=== PATIENT | male | born 1990 | race Two or more races ===

== ENCOUNTER 2018-10-13 13:35 | Emergency (ER) | payer BC, OTHER ==
[~2018-10-13] VITALS: Ht 177.8 cm; Wt 68.0 kg
[2018-10-13] MEDS ORDERED: IV NORMAL SALINE 1000ML BAG 1,000 ML IV ONE (14:00)
[2018-10-13] MEDS ORDERED: ACETAMINOPHEN 325 MG TABLET. PO ONE (14:15)
--- NOTE | 2018-10-13 14:32 | PHYS DOC ---
Adult General Chief Complaint Chief Complaint: SEIZURE HPI HPI Pt speaks Primary [place]- pt's friend Bryan is translating. 28-year-old male presents to ER via POV with friends and family. Pt had sore throat and fever earlier since yest. and wasn't feeling good so he laid down to take a nap. Pt's friend Bryan reports pt was sleeping and had approx. 1 min. of shaking in his hands/legs and seizure like activity. Pt's friend reports pt then woke up and had no further episodes. He reports pt had no incontinence of bowel/bladder. Pt reports pt has been NL on mental status with no episodes of confusion. Pt's friend Bryan denies pt fell out of bed or has had any recent falls /injury. He denies pt with recent travel, PMH, or daily meds. He denies pt smokes, drinks, or uses illicit drugs. Pt is denying any CP, palpitations, dizziness, N/V/D, or urinary sxs. Pt reports he has diffuse RAMIREZ- denies neck pain , eye pain, or light headedness. 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 Pt's friend reports approx. 1 1/2 years ago pt had similar episode that lasted brief moment and no other episodes. Review of Systems Review of Systems Constitutional: Denies fever or chills [] Eyes: Denies change in visual acuity, redness, or eye pain [] HENT: Denies nasal congestion or sore throat [] Respiratory: Denies cough or shortness of breath [] Cardiovascular: No additional information not addressed in HPI [] GI: Denies abdominal pain, nausea, vomiting, bloody stools or diarrhea [] : Denies dysuria or hematuria [] Musculoskeletal: Denies back pain or joint pain [] Integument: Denies rash or skin lesions [] Neurologic: Denies headache, focal weakness or sensory changes [] Endocrine: Denies polyuria or polydipsia [] All other systems were reviewed and found to be within normal limits, except as documented in this note. Current Medications Current Medications Current Medications Medications (Trade) Dose Ordered Sig/Sherlyn Start Time Stop Time Status Last Admin Dose Admin Acetaminophen (Tylenol) 650 mg 1X ONCE 10/13/18 14:15 10/13/18 14:16 DC 10/13/18 14:37 650 MG Sodium Chloride 1,000 ml @ 1,000 mls/hr 1X ONCE 10/13/18 14:00 10/13/18 14:59 DC 10/13/18 14:33 1,000 MLS/HR Allergies Allergies Allergies Coded Allergies Type Severity Reaction Last Updated Verified No Known Drug Allergies 10/13/18 No Physical Exam Physical Exam Constitutional: Well developed, well nourished, no acute distress, non-toxic appearance. [] HENT: Normocephalic, atraumatic, bilateral ears normal, oropharynx moist- no pharyngeal swelling/erythema, no oral exudates, nose normal. [] Eyes: 3mm PERRLA, EOMI- no eye pain with movement, no nystagmus, conjunctiva normal, no discharge. [] Neck: Normal range of motion, no tenderness- no nuchal rigidity, supple, no stridor- no gross adenopathy Cardiovascular: Heart rate regular rhythm, no murmur [] Lungs & Thorax: Bilateral breath sounds clear to auscultation. Resp. equal/ nonlabored Abdomen: Bowel sounds normal, soft, no tenderness Skin: Warm, dry, no erythema, no rash. [] Back: No tenderness, no CVA tenderness. [] Extremities: No tenderness, no cyanosis, no clubbing, ROM intact, no edema. [] Neurologic: Alert and oriented X 3, normal motor function, normal sensory function, no focal deficits noted. [] Psychologic: Affect normal, judgement normal, mood normal. [] Current Patient Data Vital Signs Vital Signs Date Time Temp Pulse Resp B/P (MAP) Pulse Ox O2 Delivery O2 Flow Rate FiO2 10/13/18 13:42 99.9 81 16 126/81 (96) 96 Room Air 99.9 Lab Values Laboratory Tests Test 10/13/18 14:04 10/13/18 14:09 10/13/18 14:26 10/13/18 15:27 Influenza Type A Antigen Negative (NEGATIVE) Influenza Type B Antigen Negative (NEGATIVE) Group A Streptococcus Rapid Negative (NEGATIVE) White Blood Count 10.3 x10^3/uL (4.0-11.0) Red Blood Count 4.42 x10^6/uL (4.30-5.70) Hemoglobin 13.8 g/dL (13.0-17.5) Hematocrit 41.6 % (39.0-53.0) Mean Corpuscular Volume 94 fL (79-100) Mean Corpuscular Hemoglobin 31 pg (25-35) Mean Corpuscular Hemoglobin Concent 33 g/dL (31-37) Red Cell Distribution Width 13.0 % (11.5-14.5) Platelet Count 191 x10^3/uL (140-400) Neutrophils (%) (Auto) 84 % (31-73) H Lymphocytes (%) (Auto) 11 % (24-48) L Monocytes (%) (Auto) 5 % (0-9) Eosinophils (%) (Auto) 0 % (0-3) Basophils (%) (Auto) 0 % (0-3) Neutrophils # (Auto) 8.6 x10^3uL (1.8-7.7) H Lymphocytes # (Auto) 1.1 x10^3/uL (1.0-4.8) Monocytes # (Auto) 0.5 x10^3/uL (0.0-1.1) Eosinophils # (Auto) 0.0 x10^3/uL (0.0-0.7) Basophils # (Auto) 0.0 x10^3/uL (0.0-0.2) Sodium Level 139 mmol/L (136-145) Potassium Level 3.6 mmol/L (3.5-5.1) Chloride Level 104 mmol/L (98-107) Carbon Dioxide Level 27 mmol/L (21-32) Anion Gap 8 (6-14) Blood Urea Nitrogen 12 mg/dL (8-26) Creatinine 1.0 mg/dL (0.7-1.3) Estimated GFR (Cockcroft-Gault) 89.6 BUN/Creatinine Ratio 12 (6-20) Glucose Level 105 mg/dL (70-99) H Calcium Level 8.7 mg/dL (8.5-10.1) Magnesium Level 1.9 mg/dL (1.8-2.4) Total Bilirubin 0.2 mg/dL (0.2-1.0) Aspartate Amino Transferase (AST) 23 U/L (15-37) Alanine Aminotransferase (ALT) 32 U/L (16-63) Alkaline Phosphatase 87 U/L (46-116) Creatine Kinase 145 U/L (39-308) Creatine Kinase MB (Mass) < 0.5 ng/mL (0.0-3.6) Creatine Kinase MB Relative Index 0.3 % (0-4) Total Protein 7.3 g/dL (6.4-8.2) Albumin 3.2 g/dL (3.4-5.0) L Albumin/Globulin Ratio 0.8 (1.0-1.7) L Urine Collection Type Unknown Urine Color Yellow Urine Clarity Clear Urine pH 6.0 Urine Specific [place] 1.010 Urine Protein Negative mg/dL (NEG-TRACE) Urine Glucose (UA) Negative mg/dL (NEG) Urine Ketones (Stick) Negative mg/dL (NEG) Urine Blood Small (NEG) Urine Nitrite Negative (NEG) Urine Bilirubin Negative (NEG) Urine Urobilinogen Dipstick 0.2 mg/dL (0.2 mg/dL) Urine Leukocyte Esterase Negative (NEG) Urine RBC 3-5 /HPF (0-2) Urine WBC 1-4 /HPF (0-4) Urine Squamous Epithelial Cells Few /LPF Urine Bacteria 0 /HPF (0-FEW) Urine Hyaline Casts Few /HPF Urine Mucus Slight /LPF Urine Opiates Screen Neg (NEG) Urine Methadone Screen Neg (NEG) Urine Barbiturates Neg (NEG) Urine Phencyclidine Screen Neg (NEG) Urine Amphetamine/Methamphetamine Neg (NEG) Urine Benzodiazepines Screen Neg (NEG) Urine Cocaine Screen Neg (NEG) Urine Cannabinoids Screen Neg (NEG) Ethyl Alcohol Level < 10 mg/dL (0-10) Urine Ethyl Alcohol Neg (NEG) Laboratory Tests 10/13/18 14:26 Laboratory Tests 10/13/18 14:26 EKG EKG [] Radiology/Procedures Radiology/Procedures [] Course & Med Decision Making Course & Med Decision Making Pertinent Labs reviewed. (See chart for details) 1420: Friend reports pt had taken 2 Decolgen tabs prior to his nap. 1600: Pt was evaluated in the ER for seizure like activity- which his friend reported while pt was sleeping he had approx. 1 min. episode of arms/legs shaking and it appeared he was having seizure activity. Pt's friend reports episode occurred around 12 p.m. and since pt woke he has been approp. mental status without confusion per pt's friend. Pt had reports of fever and flu like illness- his flu test was neg. Pt was given IV flds and dose of tylenol while in the ER as he had c/o RAMIREZ. At this time pt denies pain reporting sxs improved with RAMIREZ subsiding. He has had no seizure like activity or change in MS while in ER. Test results were discussed- labs with NL WBCs at 10.3 no bands- neutrophils were elevated at 84 which discussed probable viral illness- UA without infection. Discussed plans for home discharge as pt has been in ER for over 2 hrs without any episodes of tremors or seizure like activity- pt's friend had reported 1 other episode where pt had brief episode of shakes/ tremors which they felt were seizure like. Pt has had no doctor follow-up and is on no seizure or daily medications. No imaging done as pt had episode during sleep and has been A&Ox3 with no focal neuro deficits. Pt reported he drinks minimal water daily so advised on increasing fld intake. Educated on tylenol and ibuprofen use for fever/pain and to avoid Decolgen tabs. Will provide clinic /physician referral info with discharge paperwork and pt to f/u for re-eval. Education provided on s&s to return to ER for and discharge instructions were discussed. Pt was visualized following discussion with steady unassisted gait to bathroom. Pt's CK total was NL at 145. Dragon Disclaimer Dragon Disclaimer This electronic medical record was generated, in whole or in part, using a voice recognition dictation system. Departure Departure Impression: Primary Impression: Viral syndrome Additional Impression: Seizure-like activity Disposition: 01 HOME, SELF-CARE Condition: STABLE Referrals: NO PCP (PCP) Patient Instructions: Seizure, Adult, [id number], Viral Syndrome Additional Instructions: You probably have a viral illness causing your fever, fatigue, and sore throat. Your seizure-like activity could have been related to this illness as some people will have seizure like activity with fevers. You are being provided with information on seizures although while in the Emergency Department you have had no seizure like activity. You should follow-up with your primary doctor or a neurologist for re- evaluation and further care in 3-5 days- sooner with any concerns. Tylenol and/or ibuprofen as needed for pain and fever as directed on container. Drink lots of water. Problem Qualifiers KAYCEE BUCK APRN Oct 13, 2018 14:32
[2018-10-13 14:52] LABS: BASO % 0 % (0-3); EOS % 0 % (0-3); HEMATOCRIT 41.6 % (39.0-53.0); HEMOGLOBIN 13.8 g/dL (13.0-17.5); LYMPH # 1.1 x10^3/uL (1.0-4.8); LYMPH % 11 % (24-48); MEAN CORPUSCULAR HEMOGLOBIN 31 pg (25-35); MEAN CORPUSCULAR HGB CONC 33 g/dL (31-37); MEAN CORPUSCULAR VOLUME 94 fL (79-100); MONO # 0.5 x10^3/uL (0.0-1.1); MONO % 5 % (0-9); NEUT # 8.6 x10^3uL (1.8-7.7); NEUT % 84 % (31-73); PLATELET COUNT 191 x10^3/uL (140-400); RED BLOOD COUNT 4.42 x10^6/uL (4.30-5.70); WHITE BLOOD COUNT 10.3 x10^3/uL (4.0-11.0)
[2018-10-13 14:54] LABS: INFLUENZA A PATIENT NEGATIVE (NEGATIVE); INFLUENZA B PATIENT NEGATIVE (NEGATIVE)
[2018-10-13 15:05] LABS: CALCIUM 8.7 mg/dL (8.5-10.1); GFR 89.6; POTASSIUM 3.6 mmol/L (3.5-5.1)
[2018-10-13 15:11] LABS: ALBUMIN 3.2 g/dL (3.4-5.0); ALBUMIN/GLOBULIN RATIO 0.8 (1.0-1.7); MAGNESIUM 1.9 mg/dL (1.8-2.4); TOTAL BILIRUBIN 0.2 mg/dL (0.2-1.0); TOTAL PROTEIN 7.3 g/dL (6.4-8.2)
[2018-10-13 15:33] LABS: BILIRUBIN,URINE NEGATIVE (NEG); CLARITY,URINE CLEAR; COLOR,URINE YELLOW; NITRITE,URINE NEGATIVE (NEG); PROTEIN,URINE NEGATIVE (NEG-TRACE); UROBILINOGEN,URINE 0.2 mg/dL (0.2 mg/dL)
[2018-10-13 15:40] LABS: BARBITURATES NEG (NEG); BENZODIAZEPINES NEG (NEG); CANNABINOIDS NEG (NEG); COCAINE NEG (NEG); METHADONE NEG (NEG); OPIATES NEG (NEG); PHENCYCLIDINE NEG (NEG)
[2018-10-13 15:41] LABS: AMPHETAMINE/METHAMPHETAMINE NEG (NEG)
[2018-10-13 15:48] LABS: BACTERIA,URINE 0 /HPF (0-FEW); HYALINE CASTS, URINE FEW /HPF; SQUAMOUS EPITHELIAL CELL,UR FEW /LPF
[2018-10-13 15:52] VITALS: BP 119/64
[2018-10-13 16:51] LABS: CREATINE KINASE 145 U/L (39-308)
== END 2018-10-13 16:30 | disposition home or self-care (01) ==
LOC: ER 13:35
DX: B34.9 Viral infection, unspecified (principal); R50.9 Fever, unspecified; R51 Headache; J02.9 Acute pharyngitis, unspecified
CPT/HCPCS: 36415; 80053; 80307; 81001; 82553; 82962; 83735; 85025; 87070; 87804; 87880; 99283; G0480; J7030